=== PATIENT | female | born 1990 | race Caucasian/White ===

== ENCOUNTER → 2016-07-25 | Outpatient (CLI) | payer OTHER | END | disposition home or self-care (01) | LOC: C.PAPS 08:07 | PROVIDERS: ATTEND Physician Assistant | DX: Z12.4 Encounter for screening for malignant neoplasm of cervix (principal) ==

== ENCOUNTER → 2016-10-23 | Outpatient (CLI) | payer OTHER | END | disposition home or self-care (01) | LOC: C.FOODA 09:37 | PROVIDERS: ATTEND Internal Medicine Sports Medicine | DX: K21.9 Gastro-esophageal reflux disease without esophagitis (principal); R10.84 Generalized abdominal pain ==

== ENCOUNTER → 2016-12-26 | Outpatient (CLI) | payer OTHER ==
[2016-12-26 16:10] LABS: URINE APPEARANCE CLOUDY (CLEAR); URINE BILIRUBIN NEG (NEG); URINE COLOR YELLOW; URINE EPITHELIAL CELL AUTO 20-30 /lpf (0-5); URINE NITRITE POS (NEG); URINE PH 6.5 (4.5-7.5); URINE SPECIFIC GRAVITY 1.014 (1.000-1.030); UROBILINOGEN NEG (NEG)
[2016-12-26 16:14] LABS: MANUAL MICROSCOPIC REQUIRED? NO; REVIEW REQ? NO
== END | disposition home or self-care (01) ==
LOC: C.LABSPEC 15:56
PROVIDERS: ATTEND Physician Assistant
DX: R39.9 Unspecified symptoms and signs involving the genitourinary system (principal)

== ENCOUNTER → 2017-02-20 | Outpatient (CLI) | payer OTHER ==
--- NOTE | 2017-02-20 07:29 | DIAGNOSTIC IMAGING REPORT ---
ULTRASOUND RIGHT UPPER QUADRANT ABDOMEN CLINICAL HISTORY: Generalized abdominal pain. Gastroesophageal reflux disease. COMPARISON STUDY: No priors. TECHNIQUE: Real-time, grayscale, and color flow sonography of the right upper quadrant of the abdomen was performed. Images are reviewed in the transverse and longitudinal planes. FINDINGS: Liver: The liver is normal in size and echotexture. There is no intrahepatic biliary ductal dilatation. The main portal vein is patent. Gallbladder: There is minimal biliary sludge. The gallbladder is otherwise normal in appearance. No shadowing gallstones are identified. There is no gallbladder wall thickening or pericholecystic fluid. A sonographic Wesley's sign is reportedly absent. The common bile duct measures up to 0.3 cm in diameter. Pancreas: Visualized portions of the pancreatic head and body are normal in appearance. Right kidney: Survey images of the right kidney demonstrate normal size and echotexture. There is no hydronephrosis. Ascites: None. IMPRESSION: 1. No acute sonographic abnormality is identified in the right upper quadrant. 2. Biliary sludge is noted. No shadowing gallstones are seen and there is no sonographic evidence of acute cholecystitis. Electronically signed by: Freeman Donnelly M.D. 02/20/2017 7:27 AM Dictated Date/Time: 02/20/2017 7:18 AM
[2017-02-20 09:37] LABS: HEMATOCRIT 41.8 % (37-47); MEAN CELL VOLUME 92.9 fL (80-100); MEAN CORPUSCULAR HEMOGLOBIN 31.6 pg (25-34); MEAN PLATELET VOLUME 11.7 fL (7.4-10.4); PLATELET COUNT 282 K/uL (130-400); WHITE BLOOD COUNT 10.33 K/uL (4.8-10.8)
[2017-02-20 09:48] LABS: ALT/SGPT 42 U/L (12-78); AMYLASE 74 U/L (25-115); BLOOD UREA NITROGEN 8 mg/dl (7-18); BUN/CREATININE RATIO 8.9 (10-20); CALCIUM 9.3 mg/dl (8.5-10.1); CARBON DIOXIDE 26 mmol/L (21-32); CHLORIDE 106 mmol/L (98-107); GLUCOSE 75 mg/dl (70-99); POTASSIUM 3.8 mmol/L (3.5-5.1); SODIUM 138 mmol/L (136-145)
[2017-02-20 09:52] LABS: ALKALINE PHOSPHATASE 62 U/L (45-117); AST/SGOT 24 U/L (15-37); CHOLESTEROL 145 mg/dl (0-200); CHOLESTEROL/HDL RATIO 2.5; HDL CHOLESTEROL 59 mg/dl; LDL CHOLESTEROL CALCULATED 67 mg/dl; TRIGLYCERIDES 94 mg/dl (0-150); VERY LOW DENSITY LIPOPROT CALC 19 mg/dl
== END | disposition home or self-care (01) ==
LOC: C.ULTR 06:28
PROVIDERS: ATTEND Physician Assistant
DX: R10.84 Generalized abdominal pain (principal); K21.9 Gastro-esophageal reflux disease without esophagitis; K82.8 Other specified diseases of gallbladder

== ENCOUNTER → 2017-03-10 | Outpatient (CLI) | payer OTHER ==
[~2017-03-10] MED LIST: NORE-59 PO; SINCALIDE IV ONE; SODIUM CHLORIDE 0.9% IV ONE
--- NOTE | 2017-03-10 10:13 | DIAGNOSTIC IMAGING REPORT ---
NUCLEAR HEPATOBILIARY SCAN WITH EJECTION FRACTION IMAGING CLINICAL HISTORY: Right upper quadrant abdominal pain. COMPARISON STUDY: Abdominal ultrasound dated 02/20/2017. TECHNIQUE: Dynamic images of the liver and anterior abdomen were obtained every 5 minutes for a total of 60 minutes following the IV administration of 5.3mCi of technetium 99m Choletec. 1.35 mcg of sincalide was then injected with additional images acquired every 5 minutes for 45 minutes to calculate the gallbladder ejection fraction. FINDINGS: The hepatobiliary scan shows prompt and homogeneous hepatic uptake. There is visualized activity within the intra and extrahepatic biliary tree at 5 minutes, and within the gallbladder at 10 minutes. There is normal biliary to bowel transit, with small bowel visualized by 20 minutes. On the sincalide imaging, the gallbladder ejection fraction was measured at 56%. IMPRESSION: 1. Unremarkable nuclear hepatobiliary scan. There is no scintigraphic evidence of cholecystitis. 2. The gallbladder ejection fraction measured 56% which is normal. Electronically signed by: Freeman Donnelly M.D. 03/10/2017 10:12 AM Dictated Date/Time: 03/10/2017 10:11 AM
== END | disposition home or self-care (01) ==
LOC: C.NUCL 07:25
PROVIDERS: ATTEND Physician Assistant
DX: R10.11 Right upper quadrant pain (principal)

== ENCOUNTER → 2017-03-18 | Day surgery (SDC) | payer OTHER ==
[~2017-03-18] VITALS: Ht 175.3 cm; Wt 66.4 kg
[~2017-03-18] MED LIST changes: +LIDOCAINE HCL 2% 2 ML VIAL (20MG/ML) ONE; +MIDAZOLAM HCL 1 MG/ML 2ML VIAL ONE; +ONDANSETRON INJ 2 MG/ML 2 ML VIAL ONE; +PROPOFOL IV EMULSION 10 MG/ML 20 ML VIAL IV ONE; -SINCALIDE IV ONE; -SODIUM CHLORIDE 0.9% IV ONE
[2017-03-18 08:55] VITALS: TEMP 36
[2017-03-18 08:57] VITALS: Ht 175.3 cm; Wt 66.4 kg
--- NOTE | 2017-03-18 09:24 | Endo History and Physical ---
History & Physical Date of Service: Mar 18, 2017. Chief Complaint: ABDOMINAL PAIN Referring Physician: DR. DA CLARKE History of Present Illness 26 yo CF who presents for EGD secondary to abdominal pain. Past Surgical History Hx Cardiac Surgery: No Hx Internal Defibrillator: No Hx Pacemaker: No Hx Abdominal Surgery: No Hx of Implantable Prosthesis: No Hx Post-Op Nausea and Vomiting: Yes Hx Cancer Surgery: No Hx Thoracic Surgery: No Hx Orthopedic: No Hx Urinary Tract Surgery: No Family History None Social History Smoking Status: Never Smoker Hx Substance Use: No Hx Alcohol Use: No Allergies Coded Allergies: No Known Allergies (Verified , 03/18/17) Current Medications Reported Home Medications Medications Dose Route/Sig Max Daily Dose Days Date Category Blisovi 24 Fe 1-20 mg-Mcg(24) (Norethin Acet & Estrad-Fe) 1 Tab Tab 1 Tab PO DAILY 03/18/17 Reported Vital Signs Weight (Kilograms): 66.36 Height (Feet): 5 Height (Inches): 9 Date Time Temp Pulse Resp B/P (MAP) Pulse Ox O2 Delivery O2 Flow Rate FiO2 03/18/17 08:55 36.0 117 18 112/73 (86) 100 Room Air Physical Exam General Appearance: WD/WN, no apparent distress Respiratory/Chest: Auscultation: breath sounds normal Cardiovascular: Heart Auscultation: RRR Abdomen: Bowel Sounds: normal Inspection & Palpation: soft, non-distended, no tenderness, guarding & rebound Assessment and Plan Assessment: 26 yo CF who presents for EGD secondary to abdominal pain. Plan: Proceed with EGD.
--- NOTE | 2017-03-18 09:46 | Discharge Instructions ---
Endoscopy Patient Instructions Date / Procedure(s) Performed Mar 18, 2017. EGD Allergy Information Coded Allergies: No Known Allergies (Verified , 03/18/17) Discharge Date / Findings Mar 18, 2017. Normal EGD with Gastric biopsies Medication Instructions 1) Trial of Protonix 40mg by mouth each morning 1/2 hour prior to breakfast for 6 weeks. 2) OK to resume all medications today as prescribed Reported Home Medications Medications Dose Route/Sig Max Daily Dose Days Date Category Blisovi 24 Fe 1-20 mg-Mcg(24) (Norethin Acet & Estrad-Fe) 1 Tab Tab 1 Tab PO DAILY 03/18/17 Reported Provider Instructions Activity Restrictions - No exercising or heavy lifting for 24 hours. - Do not drink alcohol the day of the procedure. - Do not drive a car or operate machinery until the day after the procedure. - Do not make any important decisions or sign important papers in 24 hours after the procedure. Following Day: - Return to full activity which may include returning to work/school. Diet Start your diet with liquids and light foods (jello, soup, juice, toast). Then eat your usual diet if not nauseated. Treatment For Common After Affects For mild abdominal pain, bloating, or excessive gas: - Rest - Eat lightly - Lie on right side Follow-Up Information Follow-up with DR. DA CLARKE as scheduled Anesthesia Information What You Should Know You have had a procedure that required some medicine to reduce anxiety and discomfort. This treatment is called moderate sedation. After receiving the treatment, you may be sleepy, but you will be able to breathe on your own. The effects of the treatment may last for several hours. Follow these instructions along with Activity/Diet recommendations noted above: * Do NOT do anything where dizziness or clumsiness would be dangerous. * Rest quietly at home today, then you can be up and about tomorrow. * Have a responsible person stay with you the rest of today. * You may have had an I.V. today. If so, you may take the dressing off later today. Recommendations Call your doctor if: * Trouble breathing * Continuous vomiting for more than 24 hours * Temperature above 101 degrees * Severe abdominal pain or bloating * Pain not relieved by pain medicine ordered * There is increased drainage or redness from any incision * A large amount of rectal bleeding greater than 2-3 tablespoons. (If you had a polyp/s removed or have hemorrhoids, a small amount of blood - from the rectum is to be expected.) * You have any unanswered questions or concerns. IN THE EVENT OF A SERIOUS EMERGENCY, GO TO THE NEAREST EMERGENCY ROOM Your discharge instructions were prepared by provider Salvatore Logan. Patient Instructions Signature Page Damaris Jones Patient (or Guardian) Signature/Date: I have read and understand the instructions given to me by my caregivers. Caregiver/RN/Doctor Signature/Date: The above-named patient and/or guardian has received patient instructions on this date. + Original Patient Signature Page (only) stays with chart. Please make copy for patient.
--- NOTE | 2017-03-18 10:03 | Anesthesiology Progress Note ---
Anesthesia Post Op Note Date & Time Mar 18, 2017 at 10:03 Vital Signs Pain Intensity: 0 Vital Signs Past 12 Hours Date Time Temp Pulse Resp B/P (MAP) Pulse Ox O2 Delivery O2 Flow Rate FiO2 03/18/17 09:46 95 16 104/63 (77) 99 Room Air 03/18/17 08:55 36.0 117 18 112/73 (86) 100 Room Air Notes Mental Status: alert / awake / arousable, participated in evaluation Pt Amnestic to Procedure: Yes Nausea / Vomiting: adequately controlled Pain: adequately controlled Airway Patency, RR, SpO2: stable & adequate BP & HR: stable & adequate Hydration State: stable & adequate Anesthetic Complications: no major complications apparent
--- NOTE | 2017-03-18 10:15 | GI REPORT ---
Procedure Date: 03/18/2017 9:02 AM Procedure: Upper GI endoscopy Indications: Epigastric abdominal pain Medicines: Monitored Anesthesia Care Complications: No immediate complications. Estimated Blood Loss: Estimated blood loss: none. Procedure: Pre-Anesthesia Assessment: - Prior to the procedure, a History and Physical was performed, and patient medications and allergies were reviewed. The patient's tolerance of previous anesthesia was also reviewed. The risks and benefits of the procedure and the sedation options and risks were discussed with the patient. All questions were answered, and informed consent was obtained. Prior Anticoagulants: The patient has taken no previous anticoagulant or antiplatelet agents. ASA Grade Assessment: II - A patient with mild systemic disease. After reviewing the risks and benefits, the patient was deemed in satisfactory condition to undergo the procedure. After obtaining informed consent, the endoscope was passed under direct vision. Throughout the procedure, the patient's blood pressure, pulse, and oxygen saturations were monitored continuously. The Scope was introduced through the mouth, and advanced to the second part of duodenum. The upper GI endoscopy was accomplished without difficulty. The patient tolerated the procedure well. Findings: The esophagus was normal. The entire examined stomach was normal. Biopsies were taken with a cold forceps for Helicobacter pylori testing. The examined duodenum was normal. Impression: - Normal esophagus. - Normal stomach. Biopsied. - Normal examined duodenum. Recommendation: - Resume previous diet. - Continue present medications. - Await pathology results. - Return to primary care physician as previously scheduled. Salvatore Logan DO 03/18/2017 9:50:51 AM This report has been signed electronically. Note Initiated On: 03/18/2017 9:02 AM I attest to the content of the Intraoperative Record and orders documented therein, exceptions below
[2017-03-18 10:16] VITALS: BP 104/74; PULSE 81; O2SAT 100
== END | disposition home or self-care (01) ==
LOC: C.GI 08:38
PROVIDERS: ATTEND Internal Medicine
DX: R10.9 Unspecified abdominal pain (principal); J45.909 Unspecified asthma, uncomplicated; K21.9 Gastro-esophageal reflux disease without esophagitis; F41.9 Anxiety disorder, unspecified

== ENCOUNTER → 2017-04-08 | Outpatient (CLI) | payer OTHER ==
[~2017-04-08] MED LIST changes: -LIDOCAINE HCL 2% 2 ML VIAL (20MG/ML) ONE; -MIDAZOLAM HCL 1 MG/ML 2ML VIAL ONE; -ONDANSETRON INJ 2 MG/ML 2 ML VIAL ONE; -PROPOFOL IV EMULSION 10 MG/ML 20 ML VIAL IV ONE
[2017-04-08 09:38] LABS: BASO % 0.4 %; BASO ABS # 0.02 K/uL (0-0.2); EOS % 2.5 %; EOS ABS # 0.13 K/uL (0-0.5); HEMATOCRIT 40.1 % (37-47); HEMOGLOBIN 13.5 g/dL (12.0-16.0); IG# 0.01 K/uL (0.00-0.02); LYMPH % 31.3 %; LYMPH ABS # 1.65 K/uL (1.2-3.4); MEAN CELL VOLUME 93.3 fL (80-100); MEAN CORPUSCULAR HEMOGLOBIN 31.4 pg (25-34); MEAN CORPUSCULAR HGB CONC 33.7 g/dl (32-36); MEAN PLATELET VOLUME 11.2 fL (7.4-10.4); MONO ABS # 0.37 K/uL (0.11-0.59); NEUT % 58.6 %; NEUT ABS # 3.09 K/uL (1.4-6.5); PLATELET COUNT 268 K/uL (130-400); RED CELL DISTRIBUTION WIDTH CV 12.8 % (11.5-14.5); RED CELL DISTRIBUTION WIDTH SD 43.5 fL (36.4-46.3); WHITE BLOOD COUNT 5.27 K/uL (4.8-10.8)
[2017-04-08 09:48] LABS: PTT PATIENT 25.7 SECONDS (21.0-31.0)
[2017-04-08 10:56] LABS: ALBUMIN 3.8 gm/dl (3.4-5.0); ALT/SGPT 33 U/L (12-78); BLOOD UREA NITROGEN 10 mg/dl (7-18); CALCIUM 9.2 mg/dl (8.5-10.1); CARBON DIOXIDE 25 mmol/L (21-32); CREATININE 0.86 mg/dl (0.60-1.20); GLUCOSE 87 mg/dl (70-99); POTASSIUM 4.1 mmol/L (3.5-5.1); SODIUM 138 mmol/L (136-145)
[2017-04-08 10:59] LABS: ALKALINE PHOSPHATASE 58 U/L (45-117); AST/SGOT 16 U/L (15-37); TOTAL PROTEIN 7.4 gm/dl (6.4-8.2)
== END | disposition home or self-care (01) ==
LOC: C.LAB 08:23
PROVIDERS: ATTEND Surgery
DX: Z01.812 Encounter for preprocedural laboratory examination (principal); R10.11 Right upper quadrant pain

== ENCOUNTER → 2017-04-08 | Outpatient (CLI) | payer OTHER ==
--- NOTE | 2017-04-08 14:02 | DIAGNOSTIC IMAGING REPORT ---
NUCLEAR GASTRIC EMPTYING STUDY HISTORY: Right upper quadrant abdominal pain. COMPARISON: Abdominal ultrasound 02/20/2017. TECHNIQUE: Following the oral administration of 1.1 mCi of technetium 99m sulfur colloid in egg sandwich and 8 ounces of water, static abdominal images are obtained anteriorly and posteriorly at 0 minutes, 1 hour, 2 hour, and 4 hour time intervals. Gastric emptying was calculated utilizing the geometric mean method. FINDINGS: There is approximately 67% activity remaining at the 1 hour time interval (normal is less than 90%), 35% remaining at the 2 hour time interval (normal is less than 60%), and 4% activity remaining at the 4 hour time interval (normal is less than 10%). IMPRESSION: No evidence for delayed gastric emptying. Electronically signed by: Kobe Sanchez M.D. 04/08/2017 2:00 PM Dictated Date/Time: 04/08/2017 2:00 PM
== END | disposition home or self-care (01) ==
LOC: C.NUCL 08:20
PROVIDERS: ATTEND Physician Assistant
DX: R10.11 Right upper quadrant pain (principal)

== ENCOUNTER 2017-04-30 06:59 | Day surgery (SDC) | payer OTHER ==
[~2017-04-30] VITALS: Ht 177.8 cm; Wt 65.5 kg
[~2017-04-30 06:59] MED LIST changes: +LACTATED RINGER'S 1000ML 1,000 ML IV SCH; +MULT-506 PO; +VITACAP26 PO; +ZINC1TAB PO
[2017-04-30 07:41] VITALS: BP 120/80; PULSE 103; TEMP 37.2; O2SAT 99; Ht 177.8 cm; Wt 65.5 kg
[2017-04-30] MEDS ORDERED: MIDAZOLAM HCL 1 MG/ML 2ML VIAL ONE (08:05)
[2017-04-30] MEDS ORDERED: FENTANYL CITRATE INJ 50 MCG/1 ML 2 ML VIAL ONE ×3 (08:05→09:50)
--- NOTE | 2017-04-30 08:17 | History & Physical Bridge Note ---
H&P Re-Evaluation Bridge Note: I have examined the patient, reviewed the History & Physical and in the interval since the performance of the History & Physical I have noted the following changes of clinical significance: No changes notedSO at bedside all questions answered
[2017-04-30] MEDS ORDERED: LIDOCAINE HCL 2% 2 ML VIAL (20MG/ML) ONE (08:28)
[2017-04-30] MEDS ORDERED: PROPOFOL IV EMULSION 10 MG/ML 20 ML VIAL IV ONE ×2 (08:28→09:35)
[2017-04-30] MEDS ORDERED: ONDANSETRON INJ 2 MG/ML 2 ML VIAL ONE ×2 (08:28→10:36)
[2017-04-30] MEDS ORDERED: LIDOCAINE/EPINEPHRINE 1% 20 ML VIAL ONE (08:33)
[2017-04-30] MEDS ORDERED: CONRAY 60% 50 ML VIAL ONE ×2 (08:34→09:06)
[2017-04-30] MEDS ORDERED: OXYC-57 PO (08:40)
--- NOTE | 2017-04-30 08:41 | Discharge Instructions ---
Discharge Instructions Date of Service Apr 30, 2017. Visit Reason for Visit: Right Upper Quadrant Abdominal Pain Discharge Discharge Diagnosis / Problem: laparoscopic cholecystectomy Discharge Goals Goal(s): Decrease discomfort Activity Recommendations Activity Limitations: as noted below Lifting Limitations: no more than 10 pounds Shower/Bathe: tomorrow Driving or Machine Use: resume 3 days after discharge Anesthesia . Post Anesthesia Instructions: If you have had General Anesthesia or IV Sedation: * Do not drive today. * Resume driving when surgeon permits. * Do not make important decisions or sign legal documents today. * Call surgeon for: 1. Temperature elevations greater than 101 degrees F. 2. Uncontrollable pain. 3. Excessive bleeding. 4. Persistent nausea and vomiting. 5. Medication intolerance (nausea, vomiting or rash). * For nausea and vomiting use only clear liquids such as: tea, soda, bouillon until nausea subsides, then gradually increase diet as tolerated. * If you have any concerns or questions, call your surgeon's office. If physician is unavailable and it is an emergency, call 911 or go to the nearest emergency room. . Instructions / Follow-Up Instructions / Follow-Up Dr. Ruano in 1 week, call [phone] if you do not already have an appt or have any questions Diet Recommendations Recommended Home Diet: no limitations Pending Studies Studies pending at discharge: no Medical Emergencies . Who to Call and When: Medical Emergencies: If at any time you feel your situation is an emergency, please call 911 immediately. . Non-Emergent Contact Non-Emergency issues call your: Surgeon Call Non-Emergent contact if: you have a fever, temperature is above 101.5, your pain is not controlled, wound has increased pain, you have any medication questions . . "Provider Documentation" section prepared by Gio Renteria. . [place] Drug Monitoring Program Search Results: no issues identified
[2017-04-30] MEDS ORDERED: DEXAMETHASONE SOD INJ 4 MG/ML VIAL ONE (09:35)
[2017-04-30] MEDS ORDERED: RANITIDINE HCL 25 MG/ML INJ ONE (09:35)
[2017-04-30] MEDS ORDERED: DiphenhydrAMINE HCL 50 MG/ML VIAL ONE (09:35)
[2017-04-30] MEDS ORDERED: NEOSTIGMINE METHYLSULFATE 5 MG/5 ML SYR ONE (09:36)
[2017-04-30] MEDS ORDERED: GLYCOPYRROLATE INJ 0.2 MG/ML VIAL ONE (09:36)
--- NOTE | 2017-04-30 09:59 | [facility] Post Operative Brief Note ---
Immediate Operative Summary Operative Date Apr 30, 2017. Pre-Operative Diagnosis chronic ruq pain possible gallbladder disease by history Post-Operative Diagnosis genaro gallbladder Procedure(s) Performed waqar zimmerman Hostage Negotiator Surgeon(s) abena iverson Estimated Blood Loss 5cc Findings See Below strawberry gallbladder Specimens gallbladder to lab
[2017-04-30] MEDS ORDERED: LACTATED RINGER'S 1000ML 1,000 ML IV SCH (10:11)
--- NOTE | 2017-04-30 10:14 | DIAGNOSTIC IMAGING REPORT ---
CHOLANGIOGRAM O.R. CLINICAL HISTORY: Intraoperative cholangiogram. COMPARISON STUDY: Right upper quadrant ultrasound February 20, 2017. FLUOROSCOPY TIME: 3.5 seconds.. FINDINGS: 2 fluoroscopic images were obtained. No filling defect is identified within the common bile duct. An apparent filling defect within the mid common bile duct on the second image is likely artifactual. There is no biliary ductal dilatation. There is contrast within the duodenum. IMPRESSION: No evidence of choledocholithiasis. Electronically signed by: Giuseppe Field M.D. 04/30/2017 10:13 AM Dictated Date/Time: 04/30/2017 10:11 AM
[2017-04-30] MEDS ORDERED: OXYCODONE/ACETAMINOPHEN 5-325 TAB PO PRN (10:15)
[2017-04-30] MEDS ORDERED: ONDANSETRON INJ 2 MG/ML 2 ML VIAL IV PRN ×2 (10:15→10:30)
[2017-04-30] MEDS ORDERED: MoRPHine SULFATE 2 MG/ML CARP IV PRN (10:15)
[2017-04-30] MEDS ORDERED: HYDROmorphone INJ 1 MG/ML SYR ONE (10:20)
[2017-04-30] MEDS ORDERED: FLUMAZENIL 0.1 MG/1 ML 10 ML VIAL IV PRN (10:30)
[2017-04-30] MEDS ORDERED: PROMETHAZINE HCL INJ 12.5 MG in SODIUM CHLORIDE 0.9% 50ML 50 ML IV PRN (10:30)
[2017-04-30] MEDS ORDERED: EpHEDrine SULFATE INJ 50 MG/ML AMP IV PRN (10:30)
[2017-04-30] MEDS ORDERED: NALOXONE HCL 0.4 MG/1 ML VIAL/CARP IV PRN (10:30)
[2017-04-30] MEDS ORDERED: ATROPINE SULFATE 0.1 MG/ML 5ML SYR IV PRN (10:30)
--- NOTE | 2017-04-30 10:54 | OPERATIVE REPORT ---
DATE OF OPERATION: 04/30/2017 SURGEON: Dr. Ruano. PACKING HOUSE SUPERVISOR: Gio Renteria. PREOPERATIVE DIAGNOSES: Chronic right upper quadrant pain and family history of gallbladder disease. POSTOPERATIVE DIAGNOSIS: Vaughn gallbladder. PROCEDURE: Laparoscopic cholecystectomy, intraoperative cholangiogram. SUMMARY: The patient was brought into the operating room theater. The abdomen was prepped with Betadine solution and properly draped. We made a small 2-3 mm incision supraumbilically sufficient enough to place a Veress needle followed by CO2 followed by a 3 mm trocar. Once this insufflated, we then placed a 3 mm camera into the port to visualize the right upper quadrant. The camera itself on distance was dark, but once we got closer we were able to go right near the gallbladder, it was excellent resolution. Having said this, under direct visualization, we put two 3 mm subcostal ports with preemptive local analgesia and a 5 mm epigastric port. The gallbladder had some adhesions to the neck of the gallbladder to the duodenum, we were able to elevate it out and dissected out towards the triangle of Calot. Of note, the patient had more than prominent varying veins along the cystic duct going into the gallbladder into the liver area. Part of this may have been due to the fact that she was very thin, but these were more prominent veins and normally we will see. Having said that, we were able to create a window around the cystic duct which we clipped proximally. A small opening in the cystic duct was made. A #4 urethral catheter transversed the abdominal wall and a 14 Angiocath was positioned in the cystic duct. Two x-rays were taken and the taken one was completely visualize the biliary tree with no obstruction, free flow into the duodenum. Cholangiocath was then removed. The cystic duct was doubly clipped and divided. The artery posterior was doubly clipped and divided. As stated, a large venous plexus along going to the liver bed, we left it in place. We elevated the gallbladder, leaving the posterior peritoneum intact, took off completely off the liver. There was no bleeding or oozing from the liver bed. Gallbladder was then an Endopouch and taken out intact through the epigastric port. I did open it and this had the typical Vaughn contents. The subhepatic area was then checked for hemostasis and appeared satisfactory. We placed a 5 mm camera into 3 mm subcostal sites to visualize the umbilical opening and visualized the entry site, there were no adhesions identified there and there was free flow and no bleeding. We placed the camera back in the umbilical area and visualized the 5 mm epigastric port site and 2 subcostal areas. No bleeding. All the trocars were removed. Placed Dermabond for the incisions, 4-0 Monocryl was used for the umbilical area 1 stitch and 2 for the epigastric area. The procedure was tolerated well by the patient. Estimated blood loss approximately 5 mL. The patient was taken to recovery room in good condition. I attest to the content of the Intraoperative Record and any orders documented therein. Any exception s are noted below.
[2017-04-30] MEDS: HYDROmorphone INJ 1 MG/ML SYR IV PRN ×4 (11:00→11:16)
--- NOTE | 2017-04-30 11:18 | Anesthesiology Progress Note ---
Anesthesia Post Op Note Date & Time Apr 30, 2017 at 11:18 Vital Signs Pain Intensity: 4.0 Vital Signs Past 12 Hours Date Time Temp Pulse Resp B/P (MAP) Pulse Ox O2 Delivery O2 Flow Rate FiO2 04/30/17 11:00 86 16 113/78 100 Room Air 04/30/17 10:50 36.5 78 16 108/71 99 Room Air 04/30/17 10:40 79 16 114/70 99 Room Air 04/30/17 10:30 80 16 117/79 100 Oxymask 10 04/30/17 10:20 90 16 118/74 100 Oxymask 10 04/30/17 10:12 36.7 96 16 118/70 100 Oxymask 10 04/30/17 07:41 37.2 103 16 120/80 (93) 99 Room Air Notes Mental Status: alert / awake / arousable, participated in evaluation Pt Amnestic to Procedure: Yes Nausea / Vomiting: adequately controlled Pain: adequately controlled Airway Patency, RR, SpO2: stable & adequate BP & HR: stable & adequate Hydration State: stable & adequate Anesthetic Complications: no major complications apparent
[2017-04-30 11:40] VITALS: BP 106/69; PULSE 89; TEMP 37.2; O2SAT 98
[2017-04-30 12:10] VITALS: BP 103/56; PULSE 96; TEMP 37.2; O2SAT 98
[2017-04-30 12:40] VITALS: BP 87/68; PULSE 96; TEMP 37.2; O2SAT 97
[2017-04-30 13:10] VITALS: BP 113/67; PULSE 86; TEMP 37.2; O2SAT 97
== END 2017-04-30 14:00 | disposition home or self-care (01) ==
LOC: C.ACU 06:59
PROVIDERS: ATTEND Surgery
DX: K81.1 Chronic cholecystitis (principal); J45.909 Unspecified asthma, uncomplicated; K58.9 Irritable bowel syndrome, unspecified; Z81.1 Family history of alcohol abuse and dependence; Z82.49 Family history of ischemic heart disease and other diseases of the circulatory system; Z83.2 Family history of diseases of the blood and blood-forming organs and certain disorders involving the immune mechanism